=== PATIENT | female | born 1995 | race Caucasian/White ===

== ENCOUNTER 2021-02-16 21:12 | Inpatient (IN) | payer OTHER ==
[~2021-02-16] VITALS: Ht 162.6 cm; Wt 89.5 kg
[2021-02-16] MEDS ORDERED: PRENATAL 191 CTB PO (21:59)
[2021-02-16 22:00] VITALS: BP 115/55; PULSE 86; TEMP 98.1
[2021-02-16] MEDS ORDERED: NATURAL IRON65 MG PO (22:00)
[2021-02-16] MEDS ORDERED: COLACE 100100 MG/CAP PO (22:01)
[2021-02-16] MEDS ORDERED: ASPIRIN 81M81 MG/TA2 PO (22:01)
[2021-02-16 22:30] VITALS: PULSE 69
[2021-02-16 23:00] VITALS: PULSE 83
[2021-02-16 23:12] LABS: BASO # 0.1 K/mm3 (0.0-0.2); BASO % 0.4 % (0.0-2.0); EOS # 0.1 K/mm3 (0.0-0.7); EOS % 0.6 % (0.0-4.0); GRAN # 10.4 K/mm3 (1.4-6.5); GRAN % 74.7 % (42.2-75.2); HEMOGLOBIN 12.4 g/dl (12.5-16.0); LYMPH # 2.5 K/mm3 (1.2-3.4); LYMPH % 17.7 % (20.0-51.0); MEAN CELL VOLUME 85 fl (80.0-100.0); MEAN CORPUSCULAR HEMOGLOBIN 31 pg (27-31); MEAN CORPUSCULAR HGB CONC 37 g/dl (33.0-37.0); MEAN PLATELET VOLUME 10.7 fl (7.4-10.4); MONO # 0.8 K/mm3 (0.1-0.6); MONO % 5.9 % (1.7-9.3); PLATELET COUNT 225 K/mm3 (130-400); RED BLOOD COUNT 3.99 M/mm3 (4.10-5.30)
[2021-02-17] VITALS (55 sets, daily range): BP systolic 100–140; BP diastolic 51–83; PULSE 60–103; TEMP 97.6–98.4
[2021-02-18 01:35] VITALS: BP 102/52; PULSE 75; TEMP 97.9
[2021-02-18 08:54] VITALS: BP 113/64; PULSE 88; TEMP 97.6
[2021-02-18] MEDS ORDERED: MOTRIN 800800 MG/TAB PO (09:10)
[2021-02-18 12:22] VITALS: BP 118/63; PULSE 82; TEMP 97.8
[2021-02-18 16:13] VITALS: BP 116/69; PULSE 77; TEMP 97.8
[2021-02-18 21:00] VITALS: BP 112/71; PULSE 81; TEMP 97.9
[2021-02-19 08:30] VITALS: BP 127/70; PULSE 86; TEMP 97.7
== END 2021-02-19 13:30 | disposition home or self-care (01) | DRG 806 ==
LOC: LDRO 21:12 → LDR 21:28 → LDRO 21:29 → OB 02-17 17:15
PROVIDERS: Obstetrics & Gynecology; ADMIT Obstetrics & Gynecology
PROC: 10E0XZZ Delivery of Products of Conception, External Approach (ICD-10-PCS; principal; 2021-02-17)
PROC: 0UQGXZZ Repair Vagina, External Approach (ICD-10-PCS; 2021-02-17)
DX: O99.02 Anemia complicating childbirth (principal); O71.4 Obstetric high vaginal laceration alone; Z37.0 Single live birth; O99.12 Other diseases of the blood and blood-forming organs and certain disorders involving the immune mechanism complicating childbirth; D68.51 Activated protein C resistance; O99.62 Diseases of the digestive system complicating childbirth; O99.214 Obesity complicating childbirth; K90.0 Celiac disease; D64.9 Anemia, unspecified; O99.344 Other mental disorders complicating childbirth; F32.A Depression, unspecified; O75.89 Other specified complications of labor and delivery; G43.909 Migraine, unspecified, not intractable, without status migrainosus; O76 Abnormality in fetal heart rate and rhythm complicating labor and delivery; O62.1 Secondary uterine inertia; O69.1XX0 Labor and delivery complicated by cord around neck, with compression, not applicable or unspecified; O71.89 Other specified obstetric trauma; Z3A.38 38 weeks gestation of pregnancy; Z23 Encounter for immunization
CPT/HCPCS: J2590; J7120

== ENCOUNTER 2022-12-17 22:05 | Inpatient (IN) | payer BC ==
[~2022-12-17] VITALS: Ht 162.6 cm; Wt 91.8 kg
[~2022-12-17 22:05] MED LIST: ASPIRIN 81M81 MG/TA2 PO; COLACE 100100 MG/CAP PO; MOTRIN 800800 MG/TAB PO; NATURAL IRON65 MG PO; PRENATAL 191 CTB PO
--- NOTE | 2022-12-17 22:10 | NUR ---
G3L1. 38.5. Pt wheeled to LDR 5 with spouse. Clean gown on. EFM and TOCO explained and applied. Pt reports her water breaking around 1845, clear fluid noted. Denies having consistant contractions or vaginal bleeding. Reports good movement. Plan of care explained to pt and spouse who verbalize their understanding. 2216: SVE 360/-2, amniotrace + and clear fluid noted on exam. 224: IV started and labs obtained via IV site. 2247: Pt off monitors to ambulate in room. Plan of care explained to pt..
[2022-12-17 22:30] VITALS: BP 124/67; PULSE 63; TEMP 97.5
[2022-12-17 23:21] LABS: BASO % 0.2 % (0.0-2.0); EOS # 0.1 K/mm3 (0.0-0.7); EOS % 1.1 % (0.0-4.0); GRAN # 7.2 K/mm3 (1.4-6.5); GRAN % 67.8 % (42.2-75.2); HEMOGLOBIN 12.6 g/dl (12.5-16.0); LYMPH # 2.6 K/mm3 (1.2-3.4); LYMPH % 24.7 % (20.0-51.0); MEAN CELL VOLUME 87 fl (80.0-100.0); MEAN CORPUSCULAR HEMOGLOBIN 32 pg (27-31); MEAN CORPUSCULAR HGB CONC 36 g/dl (33.0-37.0); MEAN PLATELET VOLUME 11.4 fl (7.4-10.4); MONO # 0.6 K/mm3 (0.1-0.6); MONO % 5.5 % (1.7-9.3); PLATELET COUNT 215 K/mm3 (130-400); RED BLOOD COUNT 3.99 M/mm3 (4.10-5.30)
[2022-12-17 23:25] LABS: HEMATOCRIT 34.6 % (37.0-47.0)
[2022-12-17 23:40] VITALS: BP 126/76; PULSE 69
--- NOTE | 2022-12-17 23:40 | NUR ---
Back to bed for monitoring. pt reports feeling ctx every 10 min. Monitor recording shorter ctx q 3. 2354 FHT's + accelerations. Off monitor for intermittent monitoring. Birthing ball in room.
[2022-12-18] VITALS (17 sets, daily range): BP systolic 94–129; BP diastolic 52–73; PULSE 73–88; TEMP 97.7–98.3
[2022-12-18 00:11] LABS: TRICYCLIC ANTIDEPRESS URINE NEGATIVE
--- NOTE | 2022-12-18 00:43 | NUR ---
Back to bed for monitoring. Pt states "I think I'd like to try to sleep alittle. Can you help me with positioning?" Discussed monitoring plan while in bed. Pt states "It's ok just to keep monitoring while I'm sleeping" To LL with peanut ball. Lights dimmed. Pt requests "can you turn the monitor volume off so I can sleep?" EFM volume turned down.
--- NOTE | 2022-12-18 01:45 | NUR ---
[facility] downtime refer to paper L&D Flow Record.
--- NOTE | 2022-12-18 03:20 | NUR ---
[facility]
--- NOTE | 2022-12-18 03:25 | NUR ---
awakened to take off monitor. Reviewed plan to monitor again by 0400 and do SVE to determine if Pitocin augmentation is indicated. Pt verbalizes understanding.
--- NOTE | 2022-12-18 04:00 | NUR ---
pt reports "the contractions feel stronger and more regular. I had some bleeding when I went to the bathroom."
--- NOTE | 2022-12-18 04:10 | NUR ---
SVE 1 CM since admission. Pt tearful stating "I really didn't want Pitocin started. Since the ctx are more regular and I had some bloody show could we wait a little longer to see if I make more change?" discussed with pt that we recmend delivery with in 18-24 hrs of time water breaks to decreased risk of infection for Mom and Baby. Pt verbalizes understanding but would like to walk, and move around room for a little while longer. Plan of care revision to ambulate/move around room, back on monitor @ 0525 and repeat SVE @ 0550. Pt and spouse agree. Off monitor.
--- NOTE | 2022-12-18 08:07 | NUR ---
DR GUTIÉRREZ AT PT'S BEDSIDE. SVE AT THIS TIME /. DR GUTIÉRREZ BREAKS PT'S FOR BAG WITH AMNIO HOOK.
--- NOTE | 2022-12-18 08:08 | NUR ---
MOODY JASSO RESOURCE DIRECTOR CALLED FOR EPIDURAL PLACEMENT
--- NOTE | 2022-12-18 09:30 | NUR ---
[address] GUTIÉRREZ AT LABOR DESK INTERMITTENTLY REVIEWING FHR MONITOR 09 DR GUTIÉRREZ SVE AFTER DEEP VARIABLE 10/100/+2. 0910 PT BEGINS PUSHING WITH CONTRACTIONS. Jennyfer BAJWA RN, Diana ANGLIN RN, THIS RN AND DR GUTIÉRREZ AT PT'S BEDSIDE. 916 SPONTANEOUS VAGINAL DELIVERY OF VIABLE MALE INFANT. TO MOTHER'S ABDOMEN. BULB SUCTIONED AND STIMULATED. CORD CLAMPED BY DR GUTIÉRREZ AND CUT BY FOB. Jennyfer BAJWA RN TAKES OVER CARE OF . TO MOTHER'S CHEST FOR SKIN TO SKIN. 921 SPONTANEOUS DELIVERY OF PLACENTA. PITOCIN BOLUS STARTED PER PROTOCOL. FUNDAL MASSAGE DONE. PT FIRM/MIDLINE. SMALL AMT OF BLEEDING NOTED. PT PERINEUM INTACT. PERICARE DONE. CLEAN PAD PLACED. PT REPOSITIONED. SAFETY PRECAUTIONS AND PLAN OF CARE DISCUSSED. PT VERBALIZES UNDERSTANDING.
--- NOTE | 2022-12-18 14:00 | NUR ---
PT STANDBY ASSIST TO BATHROOM. PT VOIDS 300CC. PERICARE DONE. CLEAN PAD AND UNDERWEAR PLACED. PT CHANGED INTO CLEAN GOWN. PT AMBULATORY TO 207. PT ORIENTED TO ROOM. PLAN OF CARE DISCUSSED. PT VERBALIZES UNDERSTANDING.
--- NOTE | 2022-12-18 20:15 | NUR ---
Called to pt's bathroom. Pt dripped small amounts of blood on floor on waay to bathroom, blood on floor mixed with urine. Pt had passed 3 approximately [id number] each. Fundus firm, minimal flow. Performed own pericare, clean gown on. Ambulates back to bed without dizziness. Pt states "This is what I get for not taking my aspirin every day. I really have a headache." Tylenol given. Reviewed plan of care to monitor bleeding. Fundus and flow rechecked 15 minutes after bleeding. Fundus firm with minimal lochia. doting @ bedside.
[2022-12-18] MEDS ORDERED: MOTRIN 800800 MG/TAB PO (21:34)
--- NOTE | 2022-12-18 22:30 | NUR ---
to pt's room to assess bleeding, check on effectiveness of Tylenol for headache. Pt had just been up to the bathroom after nursed 20min. Clot approximatetly 7cm x 2cm noted in bottom of toilet. Peripad pt had on from 2100 to now with 35cc bright red blood noted. Fundal massage with no free flow or clots.
[2022-12-19 01:00] VITALS: BP 140/74; PULSE 84; TEMP 98.8
[2022-12-19 03:30] VITALS: BP 136/72; PULSE 80; TEMP 98
--- NOTE | 2022-12-19 03:30 | NUR ---
Pt reports "no more clots and bleeding isn't very heavy."
[2022-12-19 06:44] VITALS: BP 125/71; PULSE 82; TEMP 97.5
--- NOTE | 2022-12-19 09:45 | NUR ---
Initial visit; Parents thanked Director Of Volunteer Services for offering congratulations and God's blessings for the of their son. Director Of Volunteer Services thanked family for choosing [facility]
== END 2022-12-19 11:38 | disposition home or self-care (01) | DRG 806 ==
LOC: LDRO 22:05 → LDR 22:35 → OB 22:35
PROVIDERS: Obstetrics & Gynecology; ADMIT Obstetrics & Gynecology
PROC: 3E033VJ Introduction of Other Hormone into Peripheral Vein, Percutaneous Approach (ICD-10-PCS; 2022-12-17)
PROC: 10E0XZZ Delivery of Products of Conception, External Approach (ICD-10-PCS; principal; 2022-12-18)
PROC: 10907ZC Drainage of Amniotic Fluid, Therapeutic from Products of Conception, Via Natural or Artificial Opening (ICD-10-PCS; 2022-12-18)
PROC: 0U7C7ZZ Dilation of Cervix, Via Natural or Artificial Opening (ICD-10-PCS; 2022-12-18)
DX: O99.12 Other diseases of the blood and blood-forming organs and certain disorders involving the immune mechanism complicating childbirth (principal); D68.51 Activated protein C resistance; Z37.0 Single live birth; O99.613 Diseases of the digestive system complicating pregnancy, third trimester; K90.0 Celiac disease; K21.9 Gastro-esophageal reflux disease without esophagitis; O99.353 Diseases of the nervous system complicating pregnancy, third trimester; G43.909 Migraine, unspecified, not intractable, without status migrainosus; O99.343 Other mental disorders complicating pregnancy, third trimester; F32.A Depression, unspecified; O99.214 Obesity complicating childbirth; Z3A.38 38 weeks gestation of pregnancy
CPT/HCPCS: J2210; J2590; J2795; J7120